=== PATIENT | female | born 1980 | race Caucasian/White ===

== ENCOUNTER 2021-03-02 11:58 | Inpatient (IN) | payer MEDICARE ==
[~2021-03-02] VITALS: Ht 157.5 cm; Wt 68.0 kg
[~2021-03-02 11:58] MED LIST: ACETAMINOPHEN-1 EAC1 OR; CLONIDINE HCL0.2 M2; HYDROCODONE-AP1 EA11 PO; LIPITOR20 MG PO; MACROBID 100 M100 M1 PO; METHOCARBAMOL750 MG PO; NORCO 5-325 TA1 EACH PO; PREDNISONE 10 M10 M1 PO; PRINIVIL20 MG PO; SIMVASTATIN20 MG; TOPROL XL50 MG PO; TRAMADOL 50 MG50 MG PO; ULTRAM 50MG TAB50 MG PO; ZANAFLEX4 M1 PO
[2021-03-02 12:16] VITALS: BP 63/24
[2021-03-02 12:49] LABS: ABSOLUTE BASOPHILS 0.1 thou/uL (0.0-0.2); ABSOLUTE EOSINOPHILS 0.4 thou/uL (0.0-0.7); ABSOLUTE LYMPHOCYTES 3.1 thou/uL (0.8-5.3); ABSOLUTE MONOCYTES 0.6 thou/uL (0.0-1.2); ABSOLUTE NEUTROPHILS 5.6 thou/uL (1.6-8.1); BASOPHILS 0.7 %; EOSINOPHILS 4.2 %; HEMATOCRIT 31.3 % (37.0-47.0); HEMOGLOBIN 10.6 gm/dL (12.0-15.0); LYMPHOCYTES 31.6 %; MCH 28.7 pg (26.0-34.0); MCHC 33.8 g/dL (28.0-37.0); MONOCYTES 6.1 %; MPV 6.4 fl. (7.2-11.1); NUCLEATED RBCS 0 /100WBC; PLATELET COUNT* 311 thou/uL (150-400); POLYS 57.4 %; RBC 3.68 mil/uL (4.20-5.00); WBC 9.8 thou/uL (4.0-11.0)
[2021-03-02 12:57] LABS: CREATININE 1.5 mg/dL (0.6-1.3); POTASSIUM 4.8 mmol/L (3.5-5.1)
[2021-03-02 12:58] LABS: URINE BILIRUBIN NEGATIVE (Negative); URINE BLOOD NEGATIVE (Negative); URINE CLARITY CLEAR; URINE COLOR YELLOW; URINE GLUCOSE-RANDOM NEGATIVE (Negative); URINE KETONES NEGATIVE (Negative); URINE LEUKOCYTES NEGATIVE (Negative); URINE NITRITE NEGATIVE (Negative); URINE PROTEIN NEGATIVE (Negative); URINE SPECIFIC GRAVITY 1.015 (1.005-1.030); URINE UROBILINOGEN 0.2 E.U./dl (0.2-1.0)
[2021-03-02 13:04] LABS: SALICYLATE < 2.8 mg/dL (2.8-20.0)
[2021-03-02 13:07] LABS: ACETAMINOPHEN < 2 ug/mL (10-30); ALBUMIN 3.3 g/dL (3.4-5.0); TOTAL BILIRUBIN 0.2 mg/dL (<0.1-1.0); TOTAL PROTEIN 6.7 g/dL (6.4-8.2)
[2021-03-02 13:08] LABS: AMP/METHAMP Negative (Negative); BARBITURATES Negative (Negative); BENZODIAZEPINES Negative (Negative); COCAINE Negative (Negative); METHADONE Negative (Negative); OPIATES Negative (Negative); PCP Negative (Negative); THC POSITIVE (Negative)
--- NOTE | 2021-03-02 13:27 | EKG ---
[place] [address] ELECTROCARDIOGRAM REPORT Name: JENNIFER LOPEZ Room: [facility]#: [id number] Admission: 03/02/21 Attend Phys: Discharge: Date of : 80 Date of Service: 03/02/21 1232 Report #: [id number] THIS REPORT FOR: //name// [facility] ED Test Date: 2021-03-02 Test Time: 12:32:04 Pat Name: JENNIFER LOPEZ Department: Room: Gender: F Medical Records Analyst: : 1980 Requested By: Vini Clements Order Number: [id number] MD: Gideon Saldivar Measurements Intervals Stem Rate: 62 P: 69 IA: 165 QRS: 13 QRSD: 100 T: 47 QT: 428 QTc: 435 Interpretive Statements Sinus rhythm Nonspecific T abnormalities, anterior leads Compared to ECG 04/27/2009 18:17:47 Left ventricular hypertrophy no longer present Electronically Signed On 03-02-2021 13:27:39 CDT by Gideon Saldivar [email or web address] <ELECTRONICALLY SIGNED> By: Gideon Saldivar MD, [facility] 03/02/21 1327 1232 1232 Gideon Saldivar MD, [facility] /EPI
[2021-03-02] MEDS ORDERED: EQUETRO300 MG PO (15:00)
[2021-03-02] MEDS ORDERED: MINIPRESS2 MG PO (15:00)
[2021-03-02] MEDS ORDERED: LISINOPRIL20 MG PO (15:01)
[2021-03-02] MEDS ORDERED: QUETIAPINE FUMA50 MG PO (15:01)
[2021-03-02] MEDS ORDERED: LOPRESSOR50 MG PO (15:01)
[2021-03-02] MEDS ORDERED: NORCO5 PO (15:02)
[2021-03-02 17:39] VITALS: BP 146/83
[2021-03-03] VITALS (22 sets, daily range): BP systolic 90–164; BP diastolic 41–92
[2021-03-03 03:53] LABS: ABSOLUTE BASOPHILS 0.1 thou/uL (0.0-0.2); BASOPHILS 0.7 %; HEMOGLOBIN 9.2 gm/dL (12.0-15.0); MPV 6.2 fl. (7.2-11.1); NUCLEATED RBCS 0 /100WBC; RDW-CV 14.3 % (10.5-14.5)
[2021-03-03 03:55] LABS: ABSOLUTE EOSINOPHILS 0.3 thou/uL (0.0-0.7); ABSOLUTE LYMPHOCYTES 3.1 thou/uL (0.8-5.3); ABSOLUTE MONOCYTES 0.4 thou/uL (0.0-1.2); EOSINOPHILS 3.9 %; HEMATOCRIT 27.3 % (37.0-47.0); LYMPHOCYTES 39.2 %; MCH 28.8 pg (26.0-34.0); MCHC 33.9 g/dL (28.0-37.0); MCV 85.1 fL (80.0-100.0); PLATELET COUNT* 263 thou/uL (150-400); POLYS 51.2 %; RBC 3.21 mil/uL (4.20-5.00); WBC 7.8 thou/uL (4.0-11.0)
[2021-03-03 04:25] LABS: CALCIUM 7.4 mg/dL (8.5-10.1); CREATININE 0.8 mg/dL (0.6-1.3)
[2021-03-03 04:26] LABS: POTASSIUM 3.8 mmol/L (3.5-5.1)
--- NOTE | 2021-03-03 11:19 | 2DMMODE ---
[place] [address] 2 D/M-MODE ECHOCARDIOGRAM Name: JENNIFER LOPEZ Room: 005-P [facility] IN [place]#: [id number] Admission: 03/02/21 Attend Phys: Vitaliy Todd, Discharge: Date of : 80 Date of Service: 03/03/21 1119 Report #: [id number] THIS REPORT FOR: cc: FAM - No family physician/PCP FAM - No family physician/PCP Gideon Saldivar MD [facility] ~ APPROVED REPORT Study performed: 03/03/2021 10:30:16 EXAM: Comprehensive 2D, Doppler, and color-flow Echocardiogram Patient Location: In-Patient Room #: 005 Status: routine BSA: 1.69 HR: 93 bpm BP: 137/80 mmHg Rhythm: NSR Other Information Study Quality: Good Indications Elevated Troponin 2D Dimensions IVSd: 9.79 (7-11mm) LVOT Diam: 19.81 (18-24mm) LVDd: 44.41 mm PWd: 10.39 (7-11mm) Ascending Ao: 31.56 (22-36mm) LVDs: 26.35 (25-40mm) Aortic Root: 31.68 mm Volumes Left Atrial Volume (Systole) LA ESV Index: 29.40 mL/m2 Aortic Valve AoV Peak El.: 1.55 m/s AO Peak Gr.: 9.64 mmHg LVOT Max P.04 mmHg AO Mean Gr.: 5.01 mmHg LVOT Mean P.54 mmHg LVOT Max V: 1.50 m/s AO V2 VTI: 27.32 cm LVOT Mean V: 0.84 m/s DILLON (VTI): 3.22 cm2 LVOT V1 VTI: 28.60 [place] [address] 2 D/M-MODE ECHOCARDIOGRAM Name: JENNIFER LOPEZ Room: [address] IN ..#: [id number] Admission: 03/02/21 Attend Phys: Vitaliy Todd, Discharge: Date of : 80 Date of Service: 03/03/21 1119 Report #: [id number] Mitral Valve E/A Ratio: 0.84 MV Decel. Time: 252.78 ms MV E Max El.: 0.98 m/s MV PHT: 73.31 ms MVA (PHT): 3.00 cm2 TDI E/Lateral E': 7.00 E/Medial E': 12.25 Medial E' El.: 0.08 m/s Lateral E' El.: 0.14 m/s Pulmonary Valve PV Peak El.: 1.12 m/s PV Peak Gr.: 5.06 mmHg Left Ventricle The left ventricle is normal size. There is normal LV segmental wall motion. There is normal left ventricular wall thickness. Left ventricular systolic function is normal. The left ventricular ejection fraction is within the normal range. LVEF is 65-70%. Grade I - abnormal relaxation pattern. Right Ventricle The right ventricle is normal size. The right ventricular systolic function is normal. Atria Left atrium is mildly dilated. The right atrium size is normal. Aortic Valve The aortic valve is normal in structure. No aortic regurgitation is present. There is no aortic valvular stenosis. Mitral Valve The mitral valve is normal in structure. Mild mitral regurgitation. No evidence of mitral valve stenosis. Tricuspid Valve The tricuspid valve is normal in structure. Trace tricuspid regurgitation. Pulmonic Valve The pulmonary valve is normal in structure. There is no pulmonic [place] [address] 2 D/M-MODE ECHOCARDIOGRAM Name: JENNIFER LOPEZ Room: [address] IN [facility]#: [id number] Admission: 03/02/21 Attend Phys: Vitaliy Todd, Discharge: Date of : 80 Date of Service: 03/03/21 1119 Report #: [id number] Great Vessels The aortic root is normal in size. IVC is normal in size and collapses >50% with inspiration. Pericardium There is no pericardial effusion. <Conclusion> LVEF is 65-70%. Left atrium is mildly dilated. Mild mitral regurgitation. <ELECTRONICALLY SIGNED> By: Gideon Saldivar MD, [facility] 03/03/21 1119 18 18 Gideon Saldivar MD, FAC /INF
--- NOTE | 2021-03-03 14:51 | NUR ---
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
--- NOTE | 2021-03-03 16:36 | CON ---
[address] [address] CONSULTATION Name: JESSICAJENNIFER WU Room: [address] IN M.R.#: [id number] Admission: 03/02/21 Attend Phys: Vitaliy Todd MD Discharge: Date of : 80 Report #: [id number] THIS REPORT FOR: cc: FAM - No family physician/PCP FAM - No family physician/PCP Gideon Saldivar MD [facility] ~ DATE OF CONSULTATION: 03/03/2021 HISTORY OF PRESENT ILLNESS: The patient is a 41-year-old white female who I was asked to see in the ICU today because of an abnormal troponin. The history is obtained from the current chart. There are no family members available. The patient has a history of memory loss. She was brought to the Emergency Room yesterday by ambulance because of back pain. The patient was found to be delirious in low blood pressure. She has chronic back pains. She is noted to have an abnormal troponin. Cardiology consultation requested. She denied any history of chest pain, increased shortness of breath, palpitations, syncope or peripheral edema. PAST MEDICAL HISTORY: She has had a , high blood pressure, proteinuria, hyperlipidemia, manic depressive illness, posttraumatic stress disorder, chronic back pain. MEDICATIONS AT HOME: Include tramadol, codeine, lisinopril, metoprolol, clonidine, simvastatin. ALLERGIES: SHE HAS A PREVIOUS INTOLERANCE TO ZANAFLEX. FAMILY HISTORY: Her grandmother had heart disease. SOCIAL HISTORY: She is . She and her live in [place]. She is on disability secondary to post-traumatic stress disorder. No smoking or alcohol abuse. REVIEW OF SYSTEMS: She has had no history of stroke, asthma, liver disease, kidney disease or cancer. She does see a psychiatrist. She is very hard of hearing. PHYSICAL EXAMINATION: GENERAL: Revealed a middle-aged female, appeared in no distress, lying in bed. VITAL SIGNS: She had a blood pressure of 130/60, pulse 70. HEENT: She is anicteric. Conjunctivae pink. Mucous membranes moist. NECK: Veins not appear distended. No carotid bruits. Neck is supple. CHEST: Clear to auscultation. CARDIAC: Regular rate without murmur. ABDOMEN: [place] [address] CONSULTATION Name: LOPEZJENNIFER Room: [address]#: [id number] Admission: 03/02/21 Attend Phys: Vitaliy Todd MD Discharge: Date of : 80 Report #: [id number] EXTREMITIES: Had no edema. Dorsalis pedis pulse 2+ bilaterally. SKIN: Cool and dry. NEUROLOGIC: Nonfocal. IMAGING: ECG on admission showed a sinus rhythm, nonspecific T-wave changes. Her workup so far, she actually had an echocardiogram performed today that showed ejection fraction 65%, left atrial enlargement, mild mitral regurgitation. Workup in the Emergency Room, she had a portable chest x-ray in the Emergency Room, normal heart size, clear lung jordan. LABORATORY DATA: BUN 14, creatinine 0.8, potassium 3.8. High sensitivity troponin initially was 16, it is now 127. White blood cell count 7.8, hemoglobin 10.6. Her COVID antigen stat test was negative. Urinalysis negative for protein. IMPRESSION AND RECOMMENDATIONS: 1. Borderline troponin. No evidence of acute myocardial infarction. Recommend no cardiac evaluation at this time. 2. Hypertension. The patient is on beta-sarah, INGA inhibitor, and alpha sarah. 3. Hyperlipidemia. The patient is on a statin drug. 4. Manic depressive illness. The patient is on psychiatric medications. 5. Chronic back pain. The patient does take codeine. <ELECTRONICALLY SIGNED> By: Gideon Saldivar MD, FACC 03/03/21 1636 1108 1227Dasarah beth Saldivar MD, FACC /nt
[2021-03-04] VITALS: BP 138/66
[2021-03-04 04:00] VITALS: BP 124/57
[2021-03-04 07:31] LABS: HEMATOCRIT 29.7 % (37.0-47.0); HEMOGLOBIN 10.1 gm/dL (12.0-15.0); MCH 28.6 pg (26.0-34.0); MCHC 33.9 g/dL (28.0-37.0); MCV 84.4 fL (80.0-100.0); MPV 6.2 fl. (7.2-11.1); RBC 3.51 mil/uL (4.20-5.00); RDW-CV 14.2 % (10.5-14.5); WBC 7.1 thou/uL (4.0-11.0)
[2021-03-04 07:49] LABS: ALBUMIN 3.3 g/dL (3.4-5.0); CALCIUM 8.5 mg/dL (8.5-10.1); CREATININE 0.8 mg/dL (0.6-1.3); MAGNESIUM 1.2 mg/dL (1.8-2.4); POTASSIUM 3.6 mmol/L (3.5-5.1); TOTAL BILIRUBIN 0.2 mg/dL (<0.1-1.0); TOTAL PROTEIN 6.8 g/dL (6.4-8.2)
[2021-03-04 07:54] VITALS: BP 125/81
[2021-03-04] MEDS ORDERED: METOPROLOL SUCC25 M1 PO (08:31)
--- NOTE | 2021-03-04 08:55 | NUR ---
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
[2021-03-04 09:36] VITALS: BP 125/81
[2021-03-04 12:54] VITALS: BP 125/81
== END 2021-03-04 12:47 | disposition home or self-care (01) | DRG 280 ==
LOC: M.ERS 11:58 → M.TBA-ER 14:12 → M.ICU 14:12 → M.2W 03-03 13:54
PROVIDERS: Emergency Medicine; Internal Medicine; ADMIT Internal Medicine; ATTEND Internal Medicine
DX: I95.2 Hypotension due to drugs (principal); N17.0 Acute kidney failure with tubular necrosis; I21.A1 Myocardial infarction type 2; G93.41 Metabolic encephalopathy; Z88.8 Allergy status to other drugs, medicaments and biological substances; Z79.899 Other long term (current) drug therapy; D64.9 Anemia, unspecified; G89.29 Other chronic pain; F19.90 Other psychoactive substance use, unspecified, uncomplicated; E78.5 Hyperlipidemia, unspecified; T42.8X5A Adverse effect of antiparkinsonism drugs and other central muscle-tone depressants, initial encounter